=== PATIENT | female | born 1955 | race Caucasian/White ===

== ENCOUNTER → 2017-11-22 09:47 | Outpatient (CLI) | payer OTHER, BC, SELFPAY ==
--- NOTE | 2017-11-22 | DI.RAD.S_ITS ---
PROCEDURE: FL UPPER GI W AIR INDICATIONS: EPIGASTRIC PAIN COMPARISON: None. FINDINGS: KUB: Preprocedural talent scout film demonstrates a normal bowel gas pattern. No suspicious abdominal calcifications. Visualized solid organ contours appear normal. Bony structures appear unremarkable. Esophagus: Esophageal mucosa is normal on air-contrast views. On single-contrast views, there is normal esophageal peristalsis. No strictures, extrinsic mass effects, or diverticula. No hiatal hernia or elicited gastroesophageal reflux. Stomach: The stomach is normally distensible, with normal rugal fold thickness. No mucosal masses or ulcers. Pylorus and duodenal bulb appear normal in morphology. Duodenal folds are normal in thickness as well. IMPRESSION: Normal upper GI examination. Source of epigastric pain is not seen. Dictated by: Ernesto Cole M.D. on 11/22/2017 at 10:54 Approved by: Ernesto Cole M.D. on 11/22/2017 at 10:57
== END ==
PROVIDERS: Family Provider Family Medicine; PCP Family Medicine; Visit Provider Family Medicine
DX: R10.13 Epigastric pain (principal)
CPT/HCPCS: 74247

== ENCOUNTER → 2018-03-21 17:32 | Outpatient (CLI) | payer OTHER, BC, SELFPAY ==
--- NOTE | 2018-03-21 | DI.MRI.S_ITS ---
PROCEDURE: MR KNEE LT WO CON INDICATIONS: LEFT KNEE PAIN AFTER INJURY TECHNIQUE: Noncontrast sagittal PD fast spin echo and T2 fast spin echo with fat saturation, sagittal 3-D FLASH with fat saturation; coronal T1 spin echo and PD fast spin echo with fat saturation, and axial PD fast spin echo with fat saturation through the knee. COMPARISON: None. FINDINGS: Image quality: Excellent. Menisci: The medial and lateral menisci demonstrate mildly degenerated morphology and internal signal without meniscal tear. The meniscal root ligaments appear intact. Cruciate ligaments: The anterior and posterior cruciate ligaments appear intact. Medial structures: The medial collateral ligament appears free of disruption but there is mild edema within and immediately adjacent to the medial collateral ligament extending contiguously into the medial patellar retinaculum, without associated subluxation of the patella laterally. The posterior oblique ligament, semimembranosus tendon insertions, oblique popliteal ligament, and meniscocapsular junction appear intact. Visualized portions of the pes anserinus tendons appear normal. No abnormal bursal fluid. Lateral structures: The lateral collateral ligament, long and short heads of the biceps femoris tendon appear intact. The popliteus tendon appears normal; the popliteofibular ligament appears intact. The posterosuperior and anteroinferior popliteomeniscal fascicles appear intact. The arcuate and fabellofibular ligaments appear intact, on either side of the lateral inferior geniculate artery. Iliotibial band appears normal. Anterior structures: The quadriceps and patellar tendons appear intact. Patellar alignment is normal. No femoral trochlear dysplasia or ventral trochlear prominence. No edema in the infrapatellar fat pad. Bones and cartilage: No bone marrow contusions or fractures. The cartilage of the medial and lateral femorotibial compartments, as well as the patellofemoral compartment, appears moderately reduced in thickness is seen at the lateral facet of the patellofemoral joint and present to a lesser degree at the medial and lateral compartments. Joint space: There is a mild to moderate excess of knee joint fluid and at the superior lateral aspect of the suprapatellar bursal space there is an intra-articular loose body measures up to 1.8 cm AP, 6 mm transverse and 1.1 cm craniocaudal. There is a small posterior medial with cyst rupture or allowing extension of a small amount of fluid into the intramuscular fascial planes superiorly. Normal appearing synovial plicae are incidentally noted. IMPRESSION: Chronic moderate degenerative knee joint osteoarthritis with associated mild to moderate joint effusion, with the degenerative changes most pronounced at the lateral facet of the patellofemoral joint. Note is made of a intra-articular loose body at the superior lateral recess of the suprapatellar bursal space, measuring up to 1.8 x 0.6 x 1.1 cm. Mild degenerative change at the medial and lateral meniscus, without meniscal tear. Acute appearing mild to moderate edema involving the medial collateral ligament and medial patellar retinaculum without evidence of full-thickness tear associated with these structures. No sign of bone bruising or fracture. No traumatic subluxation is seen. Dictated by: Ernesto Cole M.D. on 03/22/2018 at 12:40 Approved by: Ernesto Cole M.D. on 03/22/2018 at 12:47
== END ==
PROVIDERS: Family Provider Family Medicine; PCP Family Medicine; Visit Provider Family Medicine
DX: M25.562 Pain in left knee (principal); M17.12 Unilateral primary osteoarthritis, left knee; M25.462 Effusion, left knee; M23.42 Loose body in knee, left knee
CPT/HCPCS: 73721

== ENCOUNTER → 2018-03-29 14:54 | Outpatient (CLI) | payer OTHER, BC, SELFPAY | PROVIDERS: PCP Family Medicine; Visit Provider Family Medicine | DX: Z78.0 Asymptomatic menopausal state (principal) | CPT/HCPCS: 77080 ==

== ENCOUNTER → 2019-12-20 15:28 | Outpatient (CLI) | payer OTHER, BC, SELFPAY ==
[2019-12-21 10:12] LABS: COVID19 Sendout NOT DETECTED (Not Detect)
== END ==
PROVIDERS: PCP Family Medicine; Visit Provider Physician Assistant
DX: Z01.812 Encounter for preprocedural laboratory examination (principal)
CPT/HCPCS: 87635

== ENCOUNTER 2019-12-23 08:26 | Day surgery (SDC) | payer OTHER, BC, SELFPAY ==
[2019-12-18 07:57] VITALS: BMI 27.9
[2019-12-23] MEDS: LACTATED RINGERS 1,000 ML 100 ML IV (09:25)
[2019-12-23 09:45] VITALS: BP 122/84; PULSE 68; RESP 16; TEMP 36.9; O2SAT 100; BMI 26.8
[2019-12-23] MEDS: CEFAZOLIN 2 GM/100 ML FROZ.PIGGY IV (11:20)
--- NOTE | 2019-12-23 11:21 | PM.HP.1 ---
History of Present Illness History of Present Illness Date Patient Seen: 12/23/19 Time Patient Seen: 11:06 Chief complaint: [id number] Narrative: The patient is a woman with an incisional hernia at her umbilicus. She had a prior laparoscopic cholecystectomy. It is bothersome and bulges at times. She is here for repair. She was delayed because of COVID-19 issues. She is now here for her operation. Patient History Medical History HTN (hypertension) (Acute) Hypothyroidism (Acute) Surgical History History of (Acute) Hx of cholecystectomy (Acute) Family & Social History Family History Mother Hypertension Heart disease Gallstones Father Hypertension Social History: household members spouse Tobacco & Substance use: Smoking Status Never smoker alcohol intake current alcohol intake frequency 0-2 drinks per day Substance Use Type does not use Meds Home Medications and Allergies Home Medications Medication Instructions Recorded Confirmed Type levothyroxine 175 mcg capsule 175 mcg PO DAILY 09/04/19 12/23/19 History lisinopril 20 mg tablet 20 mg PO DAILY 09/04/19 12/23/19 History Allergies Allergy/AdvReac Type Severity Reaction Status Date / Time No Known Drug Allergies Allergy Verified 12/23/19 09:53 Review of Systems Review of Systems ROS: Yes All systems reviewed with the patient and are negative except as otherwise documented Exam Vital Signs (past 8 hours): - 12/23/19 09:45 Temperature 98.5 F Pulse Rate 68 Respiratory Rate 16 Blood Pressure 122/84 Pulse Oximetry 100 Oxygen Delivery Method Room Air Narrative Exam Narrative: Cooperative no apparent distress. Eyes are nonicteric. Lungs are clear to auscultation without rales or rhonchi. Heart regular rate and rhythm without murmur gallop. Abdomen is scaphoid soft nontender. She has reducible hernia just inferior to her umbilicus. There is a scar overlying it. The patient is alert and oriented x3. Speech rate and content are appropriate. Affect is appropriate. Assessment & Plan Assessment and plan (1) Ventral incisional hernia without obstruction or gangrene: Problem details: I have discussed repair with her. Risks of bleeding infection recurrence discussed. Intend to place a piece of mesh. All questions have been answered. She had none and we will proceed accordingly. Status: Acute
--- NOTE | 2019-12-23 11:24 | PM.PREOP ---
Pre-operative Note COVID-19 COVID-19 status: Negative Result date/Date tested (Pos, Neg/Pending): 12/20/19 Interval Note History & Physical reviewed/Exam performed by Physician: Yes Changes to H&P: No
--- NOTE | 2019-12-23 11:41 | SUR.OPER ---
Supine on padded OR bed, head on pillow, arms secured on padded arm boards at <90 degrees abduction, legs uncrossed, safety belt at thigh, tape over blanket over lower legs.
[2019-12-23] MEDS: BUPIVACAINE 0.5% (PF) VIAL 30 ML INJ (11:45)
[2019-12-23 12:34] VITALS: BP 129/81; PULSE 83; RESP 15; TEMP 36.4; O2SAT 96
[2019-12-23 12:39] VITALS: BP 134/76; PULSE 84; RESP 12; O2SAT 96
[2019-12-23] MEDS: OXYCODONE/ACETAMINOPHEN 5/325 TABLET 1 TAB PO (12:48)
--- NOTE | 2019-12-23 12:49 | P.OP_ITS ---
Operative Date/Time/Diagnoses Date of procedure: 12/23/19 Time of procedure: 12:30 Pre-op diagnosis: Incisional ventral hernia near the umbilicus. No obstruction or gangrene. Post-op diagnosis: same Procedure & Clinicians Procedure: Open repair with underlay of mesh of ventral incisional hernia Same procedure as scheduled: Yes Indications: Symptomatic hernia at the site of a prior incision for cholecystectomy. Surgeon: Car Mckeon Click Yes if Unassisted: Yes Anesthesia Type: General Operative Notes Findings: Defect approximately 1 and half by 1 in in size. Closure Type: primary Specimen(s): none sent Prosthetic devices, grafts, tissues, transplants, or devices: 2.5 in diameter Atrium 2 sided mesh. Estimated Blood Loss (mL): 5 Blood products transfused: none Procedure in detail: The patient is placed supine on the operating room table underwent general LMA anesthesia. She was prepped and draped in the usual fashion. Incision was made overlying the hernia sac which was infraumbilical. It was carried down under direct vision to the level the sac. The sac was from surrounding structures. The fascial edge was identified and dissection was carried under it to free up the peritoneum for distance of at least 4 cm circumferentially. I removed the excess peritoneal sac and closed it with interrupted [id number] 3 0 Vicryl sutures. A 2-1/2 cm circular mesh was placed under the fascia and tacked circumferentially with U stitches of 0 Ethibond going down through fascia down through mesh, up through mesh in up through fascia. Once these were tied the fascial defect was closed with interrupted [id number] 0 Ethibond incorporating the tails into the medial- most suture. The subcu was irrigated. The subcu fat was closed with interrupted 3 0 Vicryl. The skin was closed running 4 0 Vicryl subcuticular stitch and Steri-Strips. Dressing was applied and the patient was awakened, extubated and taken recovery room good condition. Complications: none Post-operative Condition: stable Disposition: PACU Plan for aftercare: Follow-up in the office
[2019-12-23 12:55] VITALS: BP 135/81; PULSE 16; RESP 70; TEMP 36.6; O2SAT 98
== END 2019-12-23 13:44 | disposition home or self-care (01) ==
PROVIDERS: PCP Family Medicine; Referring Provider Specialist; Visit Provider Specialist
PROC: (CPT 49560; principal; 2019-12-23 11:30)
DX: K43.2 Incisional hernia without obstruction or gangrene (principal); I10 Essential (primary) hypertension; E03.9 Hypothyroidism, unspecified
CPT/HCPCS: 49560; 49568; C1781; J0690; J1100; J2250; J2405; J2704; J3010

== ENCOUNTER → 2021-08-20 14:44 | Outpatient (CLI) | payer BC, SELFPAY ==
--- NOTE | 2021-08-20 | DI.RAD.S_ITS ---
PROCEDURE: XR DEXA AXIAL SKELETON INDICATIONS: Asymptomatic menopausal state COMPARISON: None. FINDINGS: This blank DEXA report has been sent in error by the PACS system. The correct and complete report will be forthcoming in 1-2 days. Thank you for your patience and understanding. Dictated by: Jani Pickering M.D. on 08/20/2021 at 17:06 Approved by: Jani Pickering M.D. on 08/20/2021 at 17:06
== END ==
PROVIDERS: PCP Student in an Organized Health Care Education/Training Program; Referring Provider Student in an Organized Health Care Education/Training Program; Visit Provider Student in an Organized Health Care Education/Training Program
DX: Z78.0 Asymptomatic menopausal state (principal); M85.852 Other specified disorders of bone density and structure, left thigh; E07.9 Disorder of thyroid, unspecified
CPT/HCPCS: 77080

== ENCOUNTER → 2023-10-12 13:51 | Outpatient (CLI) | payer MEDICARE, BC, SELFPAY ==
--- NOTE | 2023-10-12 13:54 | DI.RAD.S_ITS ---
Bone Density Report Name: DOLLY HAMILTON Age: 68 Sex: Female Ethnicity: White Date of : 1955 Indication: postmenopausal; screening for osteoporosis; Referring Provider: CHASE CRANDALL Study: Bone densitometry was performed. Exam Date: October 12, 2023 Accession number: [id number] Bone Density: Region BMD T-score Z-score Classification AP Spine(L1-L4) 0.900 -1.3 0.6 Osteopenia Femoral Neck (Left) 0.677 -1.5 0.1 Osteopenia Total Hip (Left) 0.832 -0.9 0.5 Normal Femoral Neck (Right) 0.682 -1.5 0.2 Osteopenia Total Hip (Right) 0.868 -0.6 0.8 Normal Total Hip Mean 0.850 -0.8 0.7 Normal World Health Organization criteria for BMD impression classify patients as: Normal (T-score at or above -1.0), Osteopenia (T-score between -1.0 and -2.5), or Osteoporosis (T-score at or below -2.5). 10-year Fracture Risk(1): Major Osteoporotic Fracture 8.6% Hip Fracture 1.2% Reported Risk Factors: [place] (), Neck BMD=0.677, BMI=20.6 (1) FRAX(R) Version 3.08. Fracture probability calculated for an untreated patient. Fracture probability may be lower if the patient has received treatment. Previous Exams: -- Region Exam Age BMD T-score BMD Change BMD Change Date g/cm2 vs Baseline vs Previous -- AP Spine (L1-L4) 10/12/2023 68 0.900 -1.3 -0.094 (-9.5%)# -0.056 (-5.9%)# 08/20/2021 66 0.956 -0.8 -0.038 (-3.8%)* -0.038 (-3.8%)* 03/29/2018 62 0.994 -0.5 Total Hip(Left) 10/12/2023 68 0.832 -0.9 -0.084 (-9.1%)# -0.052 (-5.9%)# 08/20/2021 66 0.884 -0.5 -0.032 (-3.5%)* -0.032 (-3.5%)* 03/29/2018 62 0.915 -0.2 Total Hip(Right) 10/12/2023 68 0.868 -0.6 -0.117 (-11.9%)# -0.070 (-7.4%)# 08/20/2021 66 0.938 0.0 -0.047 (-4.8%)* -0.047 (-4.8%)* 03/29/2018 62 0.984 0.3 -- *Denotes significance at 95% confidence level, LSC for AP Spine = 0.022 g/cm2, LSC for Total Hip = 0.027 g/cm2 # Denotes dissimilar scan types or analysis methods Impression: The patient has low bone mass, based on the Left Femoral Neck T-score. The patient has an estimated ten-year risk of hip fracture of 1.2% and an estimated ten-year risk of major fracture of 8.6%, based on the WHO FRAX algorithm. No significant bone loss was observed. Discussion: BONE DENSITY IS LOW AT ONE OR MORE SKELETAL SITES. This patient's lowest T-score is low at one or more skeletal sites. It meets the World Health Organization's (WHO) criteria for low bone mass (T-score between -1.0 and -2.5). The patient's 10-year risk of fracture as calculated by FRAX is less than the threshold where pharmacological therapy is recommended by the National Osteoporosis Foundation (NOF). However, all treatment decisions require clinical judgment and consideration of individual patient factors, including patient preferences, comorbidities, previous drug use, risk factors not captured in the FRAX model (e.g., frailty, falls, vitamin D deficiency, increased bone turnover, interval significant decline in bone density) and possible under or overestimation of fracture risk by FRAX. The patient should follow a healthful lifestyle (good nutrition with adequate calcium and vitamin D, and appropriate weight-bearing exercise). Follow-Up: Consider repeating this study in 2 to 3 years to reassess this patient's status, or sooner if there is some new clinical indication. Reported by: YARA CORADO M.D. on 10/12/2023 2:13:00 PM.
== END ==
LOC: RAD 13:53
PROVIDERS: PCP Family Medicine; Referring Provider Family Medicine; Visit Provider Family Medicine
DX: M85.89 Other specified disorders of bone density and structure, multiple sites (principal)
CPT/HCPCS: 77080